=== PATIENT | female | born 1940 | race Caucasian/White ===

== ENCOUNTER 2018-12-13 14:21 | Emergency (ER) | payer OTHER ==
[~2018-12-13] VITALS: Ht 172.7 cm; Wt 85.3 kg
[~2018-12-13 14:21] MED LIST: ACYCLOVIR 200200 MG PO; ALLEGRA ALLERG180 MG PO; AMARYL2 MG; AMITRIPTYLINE H25 M2 PO; ASPIRIN EC81 M1 PO; BACTRIM DS TAB1 EACH PO; BENTYL20 MG PO; CELEXA 20 MG TA20 M1 PO; DIFLUCAN150 MG PO; FLEXERIL PO; GLUMETZA500; HUMULINU500; KEFLEX500 MG PO; LANTUS SUBQ; LIDODERM 5%1 PATCH TOP; MOBIC15 MG PO; MYCOLOG; NEURONTIN 300M300 M2 PO; NITROMIST8.5 GM TL; NITROQUICK0.4 MG SL; NORVASC10 MG PO; NOVOPEN 31 EACH; OMEPRAZOLE20 MG PO; VENTOLIN HFA INH8 GM IH
[2018-12-13 15:24] LABS: ABSOLUTE BASOPHILS 0.1 thou/uL (0.0-0.2); ABSOLUTE EOSINOPHILS 0.3 thou/uL (0.0-0.7); ABSOLUTE LYMPHOCYTES 2.7 thou/uL (0.8-5.3); ABSOLUTE MONOCYTES 0.7 thou/uL (0.0-1.2); ABSOLUTE NEUTROPHILS 6.9 thou/uL (1.6-8.1); BASOPHILS 0.9 %; EOSINOPHILS 2.6 %; HEMATOCRIT 40.9 % (37.0-47.0); HEMOGLOBIN 13.8 gm/dL (12.0-15.0); LYMPHOCYTES 25.2 %; MCH 29.1 pg (26.0-34.0); MCHC 33.7 g/dL (28.0-37.0); MCV 86.3 fL (80.0-100.0); MONOCYTES 6.2 %; MPV 6.7 fl. (7.2-11.1); NUCLEATED RBCS 0 /100WBC; PLATELET COUNT* 303 thou/uL (150-400); POLYS 65.1 %; RBC 4.74 mil/uL (4.20-5.00); WBC 10.5 thou/uL (4.0-11.0)
[2018-12-13 15:48] LABS: ALBUMIN 3.5 g/dL (3.4-5.0); ALKALINE PHOSPHATASE 97 U/L (46-116); ANION GAP 11 mmol/L (7-16); BUN 21 mg/dL (7-18); CALCIUM 9.1 mg/dL (8.5-10.1); CHLORIDE 105 mmol/L (98-107); CO2 26 mmol/L (21-32); GLUCOSE 168 mg/dL (70-99); LIPASE 81 U/L (73-393); POTASSIUM 4.2 mmol/L (3.5-5.1); SGOT 13 U/L (15-37); SGPT 23 U/L (30-65); SODIUM 142 mmol/L (136-145); TOTAL BILIRUBIN 0.6 mg/dL (<0.1-1.0); TOTAL PROTEIN 7.3 g/dL (6.4-8.2); TROPONIN-I LEVEL <0.06 ng/mL (<0.06)
[2018-12-13] MEDS ORDERED: COLESTIPOL HCL1 G1 PO (15:53)
[2018-12-13] MEDS ORDERED: IRON325 PO (15:53)
[2018-12-13] MEDS ORDERED: GLIPIZIDE 10 MG10 MG PO (15:54)
[2018-12-13] MEDS ORDERED: NITROFURANTOIN100 MG PO (15:54)
[2018-12-13] MEDS ORDERED: NAMENDA 10 MG T10 MG PO (15:55)
[2018-12-13] MEDS ORDERED: VITAMIN D-32000 UNIT PO (15:56)
[2018-12-13 16:50] LABS: URINE BILIRUBIN NEGATIVE (Negative); URINE BLOOD NEGATIVE (Negative); URINE CLARITY CLEAR; URINE COLOR YELLOW; URINE GLUCOSE-RANDOM NEGATIVE (Negative); URINE KETONES NEGATIVE (Negative); URINE LEUKOCYTES-REFLEX NEGATIVE (Negative); URINE NITRITE-REFLEX NEGATIVE (Negative); URINE PROTEIN NEGATIVE (Negative); URINE UROBILINOGEN 0.2 E.U./dl (0.2-1.0)
[2018-12-13] MEDS ORDERED: NITROGLYCERIN0.4 MG TOP (16:57)
[2018-12-13 17:02] VITALS: BP 146/84
== END 2018-12-13 17:02 | disposition home or self-care (01) ==
LOC: M.ERS 14:21
PROVIDERS: Physician Assistant
DX: R10.31 Right lower quadrant pain (principal); R11.2 Nausea with vomiting, unspecified; I10 Essential (primary) hypertension; E11.9 Type 2 diabetes mellitus without complications; J45.909 Unspecified asthma, uncomplicated; K21.9 Gastro-esophageal reflux disease without esophagitis; E78.5 Hyperlipidemia, unspecified; Z90.49 Acquired absence of other specified parts of digestive tract; Z90.710 Acquired absence of both cervix and uterus; Z88.1 Allergy status to other antibiotic agents; Z88.5 Allergy status to narcotic agent; Z88.6 Allergy status to analgesic agent; Z91.041 Radiographic dye allergy status; Z91.040 Latex allergy status; Z88.8 Allergy status to other drugs, medicaments and biological substances